=== PATIENT | male | born 1980 | race Caucasian/White ===

== ENCOUNTER 2016-11-09 16:06 | Emergency (ER) | payer OTHER ==
[~2016-11-09] VITALS: Wt 115.0 kg
[2016-11-09] MEDS ORDERED: FLUT9.9S NASAL (16:29)
[2016-11-09] MEDS ORDERED: CETI10CA PO (16:29)
--- NOTE | 2016-11-10 06:34 | ERD ---
DATE OF SERVICE: 11/09/2016 HISTORY OF PRESENT ILLNESS: The patient is a 36-year-old male complaining of a sore throat for 1 mo nth. He states that he has had a raspy throat. He has had no fevers, no coughing, no runny nose. He has taken occasional Advil with mild alleviation. 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 He notices that his throat becomes more raspy when he is in c hanged weather. He has had a mild runny nose and mild cough but no fevers. PAST MEDICAL HISTORY: No other medical problems. ALLERGIES: NO ALLERGIES TO MEDICATIONS. PAST SURGICAL HISTORY: Denies. SOCIAL HISTORY: Smokes occasionally. REVIEW OF SYSTEMS: A 12-point review of systems was done. Refer to HPI for positives; all other sy stems negative. PHYSICAL EXAMINATION VITAL SIGNS: Temperature 98, pulse 85, blood pressure is 162/86, respiratory 18, O2 saturation 99% on room air. Pain intensity is 0/10. GENERAL: The patient is well-appearing, well-nourished, no acute distress. HEENT: Atraumatic. Conjunctivae are pink. Pupils equal, round, and reactive to light. There is no s cleral icterus. Tympanic membranes clear bilaterally. Oropharynx clear. No nystagmus or photophobia . NECK: C-spine is soft and supple. There is no meningismus. There is no cervical lymphadenopathy. No JVD. No bruits. No goiter. CHEST: Clear to auscultation bilaterally. There are no rales, wheezes or rhonchi. HEART: Regular rate and rhythm. No murmurs, clicks, rubs or gallops. No S3 or S4. ABDOMEN: Soft, nontender and nondistended. Good bowel sounds. No rebound or guarding. No gross aarti tonitis. No gross organomegaly or masses. No Mota sign or McBurney point tenderness. SKIN: There is no apparent rash or petechia. The skin is warm and dry. DIAGNOSIS: Laryngitis. MEDICAL DECISION MAKING: I feel the patient's symptoms are likely associated with nasal congestion and postnasal drip causing the patient to have irritation within the vocal cords. I have low suspic ion for bacterial infection, low suspicion for mass. DISCHARGE: The patient is discharged stable. The patient is given a prescription for Zyrtec and Fl onase and told to follow up with primary care within 1 to 2 days for reevaluation. The patient was told if symptoms progress or worsen to return to the ER. All other questions answered at time of di scharge. Discharge summary given at the time of departure. The patient understood and complied wit h plan. Dictated By: NICK FORREST/MEGAN Conf#: [id number] DID#: [id number]
== END 2016-11-10 08:33 | disposition home or self-care (01) ==
LOC: E/R 16:06
DX: J04.0 Acute laryngitis (principal); F17.210 Nicotine dependence, cigarettes, uncomplicated
CPT/HCPCS: 99283